=== PATIENT | female | born 1955 | race Caucasian/White ===

== ENCOUNTER 2016-06-11 22:09 | Emergency (ER) | payer OTHER ==
[~2016-06-11] VITALS: Ht 157.5 cm; Wt 89.3 kg
[2016-06-11 23:50] VITALS: BP 133/81
== END 2016-06-11 23:51 | disposition home or self-care (01) ==
LOC: EME 22:09 → EXP 22:09
DX: T54.2X1A Toxic effect of corrosive acids and acid-like substances, accidental (unintentional), initial encounter (principal); T26.91XA Corrosion of right eye and adnexa, part unspecified, initial encounter; T26.92XA Corrosion of left eye and adnexa, part unspecified, initial encounter
CPT/HCPCS: 99281; 99284